=== PATIENT | female | born 2000 | race Hispanic/Latino ===

== ENCOUNTER 2022-12-12 12:12 | Emergency (ER) | payer BC ==
[~2022-12-12] VITALS: Ht 162.6 cm; Wt 67.2 kg
[2022-12-12 12:26] VITALS: O2SAT 100
[2022-12-12] MEDS ORDERED: MUPIROCIN22 GM TOP (12:36)
[2022-12-12] MEDS ORDERED: CEPHALEXIN500 MG PO (12:36)
== END 2022-12-12 12:41 | disposition home or self-care (01) ==
LOC: FSED 12:21
DX: H60.11 Cellulitis of right external ear (principal)
CPT/HCPCS: 99283

== ENCOUNTER 2024-01-06 17:59 | Emergency (ER) | payer BC, OTHER ==
[~2024-01-06] VITALS: Ht 162.6 cm; Wt 74.8 kg
[~2024-01-06 17:59] MED LIST: CEPHALEXIN500 MG PO; MUPIROCIN22 GM TOP
[2024-01-06 18:31] LABS: BASOPHILS % 0.4 % (0.0-1.0); EOSINOPHILS # (AUTO) 0.1 (0.0-0.4); EOSINOPHILS % 0.7 % (0.0-6.0); HEMATOCRIT 39.7 % (34.2-44.1); HEMOGLOBIN 13.5 g/dL (12.0-16.0); LYMPHOCYTES # (AUTO) 2.1 (1.0-3.2); LYMPHOCYTES % 27.2 % (18.0-39.1); MEAN CORPUSCULAR HEMOGLOBIN 31.8 pg (28-32); MEAN CORPUSCULAR VOLUME 93.4 fL (81-99); MONOCYTES # (AUTO) 0.5 (0.2-0.8); NEUTROPHILS % 65.4 % (38.7-80.0); PLATELET COUNT 322 x10e3/uL (140-360); RED BLOOD COUNT 4.25 x10e6/uL (3.6-5.1); RED CELL DISTRIBUTION WIDTH 11.4 % (11.7-14.4); WHITE BLOOD COUNT 7.67 x10e3/uL (4.8-10.8)
[2024-01-06 18:45] LABS: ALBUMIN 4.3 g/dL (3.5-5.0); ALBUMIN/GLOBULIN RATIO 1.1 (0.8-2.0); ANION GAP 13.9 mmol/L (8-16); BILIRUBIN,TOTAL 0.6 mg/dL (0.2-1.2); CALCIUM 9.6 mg/dL (8.4-10.2); CREATININE, SERUM 0.79 mg/dL (0.57-1.11); POTASSIUM 3.9 mmol/L (3.5-5.1); TOTAL PROTEIN 8.1 g/dL (6.5-8.1)
[2024-01-06 18:53] LABS: BILIRUBIN,URINE NEGATIVE (NEGATIVE); CLARITY,URINE SL CLOUDY (CLEAR); COLOR,URINE YELLOW (YELLOW); GLUCOSE, URINE NEGATIVE (NEGATIVE); KETONES,URINE NEGATIVE (NEGATIVE); LEUKOCYTE ESTERASE ,URINE NEGATIVE (NEGATIVE); NITRITE,URINE NEGATIVE (NEGATIVE); PH,URINE 6.5 (5 - 7); PROTEIN,URINE DIPSTICK NEGATIVE (NEGATIVE); URINE UROBILINOGEN 2 mg/dL (0.2 - 1)
[2024-01-06 19:00] LABS: LIPASE 26 U/L (8-78)
[2024-01-06 19:05] LABS: BACTERIA,URINE FEW /HPF; MUCUS,URINE MODERATE (RARE); RBC,URINE 0-5 /HPF (0-5); TRANSITIONAL EPI CELLS,URINE FEW
[2024-01-06 19:06] LABS: TROPONIN I < 0.001 ng/mL (0-0.300)
[2024-01-06] MEDS ORDERED: DICYCLOMINE HCL20 MG PO (21:23)
[2024-01-06 21:28] VITALS: PULSE 72; RESP 16; TEMP 98.8; O2SAT 100
== END 2024-01-06 21:27 | disposition home or self-care (01) ==
LOC: ER 18:15
DX: R07.89 Other chest pain (principal); R10.9 Unspecified abdominal pain
CPT/HCPCS: 36415; 71045; 80053; 81001; 83690; 84484; 84702; 85025; 93005; 99284